=== PATIENT | male | born 1940 | race Caucasian/White ===

== ENCOUNTER 2019-09-13 17:24 | Observation (INO) | payer MEDICARE ==
[~2019-09-13] VITALS: Ht 172.7 cm; Wt 65.6 kg
[2019-09-13] MEDS ORDERED: SODIUM CHLORIDE FLUSH 10ML SYR IVF ONE (18:30)
[2019-09-13 18:39] LABS: BASOPHILS # (AUTO) 0.04 x10^3/uL (0-0.1); BASOPHILS % (AUTO) 1 % (0-1); EOSINOPHILS % (AUTO) 1 % (1-7); LYMPHOCYTES # (AUTO) 1.38 x10^3/uL (1-3.4); LYMPHOCYTES % (AUTO) 20 % (22-44); MD NO; MEAN CORPUSCULAR HEMOGLOBIN 31.4 pg (27.5-34.5); MEAN CORPUSCULAR HGB CONC 33.6 g/dL (33.2-36.2); MEAN CORPUSCULAR VOLUME 93.3 fL (81-97); MEAN PLATELET VOLUME 7.7 fL (7.4-10.4); MONOCYTES # (AUTO) 0.88 x10^3/uL (0.2-0.8); MONOCYTES % (AUTO) 13 % (2-9); NEUTROPHILS # (AUTO) 4.64 x10^3/uL (1.8-6.8); NEUTROPHILS % (AUTO) 66 % (42-75); PLATELET COUNT 279 x10^3/uL (130-400); RED BLOOD COUNT 3.62 x10^6/uL (4.38-5.82); RED CELL DISTRIBUTION WIDTH 14.5 % (9.4-14.8)
[2019-09-13 18:41] LABS: ALANINE AMINOTRANSFERASE 20 U/L (12-78); ALBUMIN 3.1 g/dL (3.4-5.0); ANION GAP 5 mmol/L (5-15); CALCIUM 8.5 mg/dL (8.5-10.1); CHLORIDE 101 mmol/L (98-107); CREATININE 1.25 mg/dL (0.7-1.3)
--- NOTE | 2019-09-13 18:43 | NUR ---
PT GOING TO CT.
[2019-09-13 18:45] LABS: ALKALINE PHOSPHATASE 63 U/L (45-117); BILIRUBIN,TOTAL 0.4 mg/dL (0.2-1.0); TOTAL PROTEIN 6.8 g/dL (6.4-8.2); TROPONIN I < 0.015 ng/mL (0.000-0.045)
--- NOTE | 2019-09-13 19:00 | NUR ---
PT BACK FROM CT. PT AMBULATED TO RESTROOM WITH STEADY GAIT.
--- NOTE | 2019-09-13 19:17 | NUR ---
ALL RESULTS ARE BACK AT THIS TIME. CHART UP FOR RECHECK.
[2019-09-13] MEDS ORDERED: ASCO500T8 PO (19:25)
[2019-09-13] MEDS ORDERED: VITAMIN B12 PO (19:25)
[2019-09-13] MEDS ORDERED: LEVO100T5 PO (19:25)
[2019-09-13] MEDS ORDERED: METO25TA2 PO (19:25)
[2019-09-13] MEDS ORDERED: AMLO10TA8 PO (19:25)
[2019-09-13] MEDS ORDERED: SODI1TAB PO (19:25)
[2019-09-13] MEDS ORDERED: LOSA100T14 PO (19:25)
[2019-09-13] MEDS ORDERED: FERR324T5 PO (19:25)
[2019-09-13] MEDS ORDERED: ATOR40TA78 PO (19:25)
[2019-09-13] MEDS ORDERED: ASPI-496 PO (19:25)
[2019-09-13] MEDS ORDERED: CHOL10003 PO (19:25)
--- NOTE | 2019-09-13 19:27 | NUR ---
PT TO BE ADMITTED. MED REC COMPLETE. PT RESTING COMFORTABLY ON GURNEY. NADN. SON AT BEDSIDE.
[2019-09-13] MEDS ORDERED: SODIUM CHLORIDE FLUSH 10ML SYR IVF PRN (19:30)
--- NOTE | 2019-09-13 19:41 | NUR ---
HOSPITALIST AT BEDSIDE.
--- NOTE | 2019-09-13 19:56 | NUR ---
REPORT GIVENT TO CHANTAL WATTERS.
[2019-09-13] MEDS ORDERED: hydrALAzine 20 MG/ML, 1ML IVPush PRN (20:00)
[2019-09-13] MEDS ORDERED: ONDANSETRON 2MG/ML, 2ML IVPush PRN (20:00)
[2019-09-13] MEDS: ATORVASTATIN 40 MG TABLET PO SCH (20:57)
[2019-09-13 21:38] VITALS: BP 169/74
[2019-09-14 02:02] VITALS: BP 152/61
[2019-09-14 05:23] LABS: BASOPHILS # (AUTO) 0.07 x10^3/uL (0-0.1); BASOPHILS % (AUTO) 1 % (0-1); EOSINOPHILS # (AUTO) 0.08 x10^3/uL (0-0.4); EOSINOPHILS % (AUTO) 2 % (1-7); LYMPHOCYTES # (AUTO) 1.14 x10^3/uL (1-3.4); LYMPHOCYTES % (AUTO) 22 % (22-44); MD NO; MEAN CORPUSCULAR HEMOGLOBIN 31.2 pg (27.5-34.5); MEAN CORPUSCULAR HGB CONC 33.4 g/dL (33.2-36.2); MEAN CORPUSCULAR VOLUME 93.4 fL (81-97); MEAN PLATELET VOLUME 7.9 fL (7.4-10.4); MONOCYTES # (AUTO) 0.77 x10^3/uL (0.2-0.8); MONOCYTES % (AUTO) 15 % (2-9); NEUTROPHILS # (AUTO) 3.21 x10^3/uL (1.8-6.8); NEUTROPHILS % (AUTO) 61 % (42-75); PLATELET COUNT 255 x10^3/uL (130-400); RED BLOOD COUNT 3.23 x10^6/uL (4.38-5.82); RED CELL DISTRIBUTION WIDTH 14.2 % (9.4-14.8)
[2019-09-14 05:30] LABS: ANION GAP 7 mmol/L (5-15); CALCIUM 8.4 mg/dL (8.5-10.1); CHLORIDE 104 mmol/L (98-107)
[2019-09-14 05:42] LABS: CREATININE 1.15 mg/dL (0.7-1.3)
[2019-09-14 06:37] VITALS: BP 147/63
[2019-09-14] MEDS: ASPIRIN 81 MG TABLET EC PO SCH (08:57)
[2019-09-14] MEDS: LOSARTAN 50MG TABLET PO SCH (08:58)
[2019-09-14] MEDS: LEVOTHYROXINE 100 MCG TABLET PO SCH (08:58)
[2019-09-14] MEDS: AMLODIPINE 10 MG TAB PO SCH (08:58)
[2019-09-14] MEDS: METOPROLOL SUCCINATE 25 MG TAB.ER.24H PO SCH (08:58)
[2019-09-14 12:01] VITALS: BP 144/66
[2019-09-14 20:05] VITALS: BP 143/60
[2019-09-14] MEDS: ATORVASTATIN 40 MG TABLET PO SCH (21:22)
[2019-09-15 01:05] VITALS: BP 150/58
[2019-09-15 06:17] VITALS: BP 153/65
[2019-09-15] MEDS: LOSARTAN 50MG TABLET PO SCH (07:53)
[2019-09-15] MEDS: LEVOTHYROXINE 100 MCG TABLET PO SCH (07:53)
[2019-09-15] MEDS: ASPIRIN 81 MG TABLET EC PO SCH (07:53)
[2019-09-15] MEDS: AMLODIPINE 10 MG TAB PO SCH (07:53)
[2019-09-15] MEDS: METOPROLOL SUCCINATE 25 MG TAB.ER.24H PO SCH (07:54)
[2019-09-15 12:08] VITALS: BP 134/68
[2019-09-15] MEDS ORDERED: CLOP75TA52 PO (13:42)
== END 2019-09-15 15:03 | disposition home or self-care (01) ==
LOC: ED 19:57 → EDIP 20:04 → INTOOBSV 20:04 → 4EST 20:31
PROVIDERS: ADMIT Internal Medicine; ATTEND Internal Medicine
DX: G45.9 Transient cerebral ischemic attack, unspecified (principal); E03.9 Hypothyroidism, unspecified; I11.9 Hypertensive heart disease without heart failure; I73.9 Peripheral vascular disease, unspecified; D64.9 Anemia, unspecified; G45.0 Vertebro-basilar artery syndrome; Z79.82 Long term (current) use of aspirin; Z90.49 Acquired absence of other specified parts of digestive tract; Z95.5 Presence of coronary angioplasty implant and graft
CPT/HCPCS: 36415; 70450; 70551; 71045; 80048; 80053; 83735; 84443; 84484; 85025; 93005; 93306; 93880; 97161; 99285; G0378

== ENCOUNTER 2019-11-01 09:41 | Inpatient (IN) | payer MEDICARE ==
[~2019-11-01] VITALS: Ht 172.7 cm; Wt 70.0 kg
[~2019-11-01 09:41] MED LIST: AMLO10TA8 PO; ASCO500T8 PO; ASPI-496 PO; ATOR40TA78 PO; CHOL10003 PO; CLOP75TA52 PO; FERR324T5 PO; LEVO100T5 PO; LOSA100T14 PO; METO25TA2 PO; SODI1TAB PO; VITAMIN B12 PO
[2019-11-01] MEDS ORDERED: PANTOPRAZOLE 80 MG in SODIUM CHLORIDE 0.9% 50 ML IVPB ONE (10:33)
[2019-11-01] MEDS ORDERED: SODIUM CHLORIDE 0.9% 1,000ML IVBOLUS ONE (11:00)
[2019-11-01] MEDS: PANTOPRAZOLE 80 MG in SODIUM CHLORIDE 0.9% 100 ML IV SCH ×3 (11:00→14:00)
[2019-11-01] MEDS ORDERED: ONDANSETRON 2MG/ML, 2ML IVPush ONE (11:00)
[2019-11-01] MEDS ORDERED: SODIUM CHLORIDE FLUSH 10ML SYR IVF ONE (11:00)
[2019-11-01 11:22] LABS: BASOPHILS # (AUTO) 0.01 x10^3/uL (0-0.1); BASOPHILS % (AUTO) 0 % (0-1); EOSINOPHILS % (AUTO) 0 % (1-7); LYMPHOCYTES # (AUTO) 0.67 x10^3/uL (1-3.4); LYMPHOCYTES % (AUTO) 5 % (22-44); MD NO; MEAN CORPUSCULAR HEMOGLOBIN 31.5 pg (27.5-34.5); MEAN CORPUSCULAR HGB CONC 33.9 g/dL (33.2-36.2); MEAN PLATELET VOLUME 8.1 fL (7.4-10.4); MONOCYTES # (AUTO) 0.66 x10^3/uL (0.2-0.8); MONOCYTES % (AUTO) 5 % (2-9); NEUTROPHILS % (AUTO) 90 % (42-75); PLATELET COUNT 298 x10^3/uL (130-400); RED BLOOD COUNT 4.12 x10^6/uL (4.38-5.82); RED CELL DISTRIBUTION WIDTH 14.4 % (9.4-14.8)
[2019-11-01] MEDS ORDERED: ONDANSETRON 2MG/ML, 2ML ONE (11:30)
[2019-11-01 12:17] LABS: INTERNATIONAL NORMALIZED RATIO 0.98 (0.93-1.1); PROTHROMBIN TIME 10.4 Seconds (9.6-11.5)
[2019-11-01 12:19] LABS: ALANINE AMINOTRANSFERASE 18 U/L (12-78); ALBUMIN 3.3 g/dL (3.4-5.0); ANION GAP 11 mmol/L (5-15); CHLORIDE 100 mmol/L (98-107); CREATININE 1.37 mg/dL (0.7-1.3)
[2019-11-01 12:23] LABS: ALKALINE PHOSPHATASE 64 U/L (45-117); BILIRUBIN,TOTAL 0.5 mg/dL (0.2-1.0); TROPONIN I < 0.015 ng/mL (0.000-0.045)
--- NOTE | 2019-11-01 12:46 | NUR ---
pt medicated per order. unable to obtain 2 large bore iv's as ordered due to pt having difficult access. pt resting comfortably in bed at thsi time. call light in reach. iv bolus of ns initiated using pressure bag through 22 g iv in rt hand.
[2019-11-01] MEDS ORDERED: OMNIPAQUE 350 MG/ML, 100ML BOTTLE ONE (13:00)
--- NOTE | 2019-11-01 13:08 | NUR ---
pt to ct now
[2019-11-01] MEDS ORDERED: morphine SULFATE 10 MG/ML, 1ML IVPush PRN (14:00)
[2019-11-01] MEDS ORDERED: ONDANSETRON 2MG/ML, 2ML IVPush PRN (14:00)
[2019-11-01] MEDS ORDERED: hydrALAzine 20 MG/ML, 1ML IVPush PRN (14:00)
[2019-11-01] MEDS ORDERED: LABETALOL 5MG/ML, 20ML IVPush PRN (14:00)
[2019-11-01] MEDS ORDERED: LEVOFLOXACIN/PMX 250MG/50ML 50 ML IV SCH (14:00)
[2019-11-01 15:06] VITALS: BP 146/72
[2019-11-01 15:18] LABS: TROPONIN I 0.019 ng/mL (0.000-0.045)
[2019-11-01] MEDS: NS + 20MEQ KCL 1,000 ML IV SCH (15:20)
[2019-11-01] MEDS: METRONIDAZOLE PMX 500MG/100ML 100 ML IV SCH (16:52)
[2019-11-01 18:50] VITALS: BP 127/75
[2019-11-01 19:56] LABS: TROPONIN I 0.037 ng/mL (0.000-0.045)
[2019-11-02 00:32] VITALS: BP 120/64
[2019-11-02] MEDS: METRONIDAZOLE PMX 500MG/100ML 100 ML IV SCH ×3 (01:35→17:00)
[2019-11-02] MEDS: NS + 20MEQ KCL 1,000 ML IV SCH ×3 (01:35→21:50)
[2019-11-02] MEDS: PANTOPRAZOLE 80 MG in SODIUM CHLORIDE 0.9% 100 ML IV SCH ×4 (02:57→22:22)
[2019-11-02 05:37] LABS: BASOPHILS # (AUTO) 0.03 x10^3/uL (0-0.1); BASOPHILS % (AUTO) 0 % (0-1); EOSINOPHILS % (AUTO) 0 % (1-7); LYMPHOCYTES # (AUTO) 0.77 x10^3/uL (1-3.4); LYMPHOCYTES % (AUTO) 10 % (22-44); MD NO; MEAN CORPUSCULAR HEMOGLOBIN 30.6 pg (27.5-34.5); MEAN CORPUSCULAR HGB CONC 32.3 g/dL (33.2-36.2); MEAN PLATELET VOLUME 7.8 fL (7.4-10.4); MONOCYTES # (AUTO) 1.12 x10^3/uL (0.2-0.8); MONOCYTES % (AUTO) 14 % (2-9); NEUTROPHILS # (AUTO) 6.14 x10^3/uL (1.8-6.8); NEUTROPHILS % (AUTO) 76 % (42-75); PLATELET COUNT 229 x10^3/uL (130-400); RED BLOOD COUNT 3.56 x10^6/uL (4.38-5.82); RED CELL DISTRIBUTION WIDTH 14.3 % (9.4-14.8)
[2019-11-02 05:45] LABS: ALBUMIN 2.7 g/dL (3.4-5.0); ANION GAP 7 mmol/L (5-15); CALCIUM 8.6 mg/dL (8.5-10.1); CHLORIDE 110 mmol/L (98-107)
[2019-11-02 05:50] LABS: ALANINE AMINOTRANSFERASE 13 U/L (12-78); ALKALINE PHOSPHATASE 50 U/L (45-117); BILIRUBIN,TOTAL 0.5 mg/dL (0.2-1.0); TOTAL PROTEIN 5.7 g/dL (6.4-8.2)
[2019-11-02 07:00] VITALS: BP 127/64
[2019-11-02] MEDS: LEVOTHYROXINE 100 MCG INJ IVPush SCH (08:25)
[2019-11-02 14:10] VITALS: BP 117/70
[2019-11-02 19:40] VITALS: BP 123/76
[2019-11-02] MEDS ORDERED: PROMETHAZINE 25 MG/ML, 1ML IM PRN (22:30)
[2019-11-03] MEDS: METRONIDAZOLE PMX 500MG/100ML 100 ML IV SCH ×3 (01:26→18:30)
[2019-11-03 01:58] VITALS: BP 117/71
[2019-11-03 05:54] LABS: BASOPHILS % (AUTO) 0 % (0-1); EOSINOPHILS % (AUTO) 0 % (1-7); LYMPHOCYTES # (AUTO) 0.57 x10^3/uL (1-3.4); LYMPHOCYTES % (AUTO) 5 % (22-44); MD NO; MEAN CORPUSCULAR HEMOGLOBIN 30.7 pg (27.5-34.5); MEAN CORPUSCULAR HGB CONC 32.3 g/dL (33.2-36.2); MONOCYTES # (AUTO) 1.16 x10^3/uL (0.2-0.8); MONOCYTES % (AUTO) 10 % (2-9); NEUTROPHILS # (AUTO) 10.51 x10^3/uL (1.8-6.8); NEUTROPHILS % (AUTO) 86 % (42-75); PLATELET COUNT 262 x10^3/uL (130-400); RED BLOOD COUNT 4.01 x10^6/uL (4.38-5.82); RED CELL DISTRIBUTION WIDTH 14.7 % (9.4-14.8)
[2019-11-03 06:03] LABS: ANION GAP 9 mmol/L (5-15); CALCIUM 9.3 mg/dL (8.5-10.1); CHLORIDE 116 mmol/L (98-107)
[2019-11-03 06:04] LABS: CREATININE 1.19 mg/dL (0.7-1.3)
[2019-11-03] MEDS: NS + 20MEQ KCL 1,000 ML IV SCH ×3 (06:17→22:47)
[2019-11-03 06:54] VITALS: BP 129/68
[2019-11-03] MEDS: PANTOPRAZOLE 80 MG in SODIUM CHLORIDE 0.9% 100 ML IV SCH (08:00)
[2019-11-03] MEDS: LEVOTHYROXINE 100 MCG INJ IVPush SCH (10:22)
[2019-11-03 12:15] VITALS: BP 138/73
[2019-11-03] MEDS ORDERED: hydrALAzine 20 MG/ML, 1ML IV PRN (13:00)
[2019-11-03] MEDS ORDERED: HALOPERIDOL 5 MG/ML IV PRN (13:00)
[2019-11-03] MEDS ORDERED: LABETALOL 5MG/ML, 20ML IV PRN (13:00)
[2019-11-03] MEDS ORDERED: HYDROmorphone 1 MG/ML, 1ML INJ IVPush PRN (13:00)
[2019-11-03] MEDS ORDERED: PROMETHAZINE 25 MG/ML, 1ML IVPush PRN (13:00)
[2019-11-03] MEDS ORDERED: MEPERIDINE/PF 25MG/0.5ML IVPush PRN (13:00)
[2019-11-03] MEDS ORDERED: FENTANYL PF 100 MCG/2ML IV PRN (13:00)
[2019-11-03] MEDS ORDERED: DIPHENHYDRAMINE 50 MG/ML, 1ML IVPush PRN (13:00)
[2019-11-03] MEDS ORDERED: CHLORHEXIDINE 15 ML UDC MM ONE (13:30)
[2019-11-03] MEDS ORDERED: BUPIVACAINE/PF-EPI 0.5% 1:200K INFIL ONE (14:26)
[2019-11-03] MEDS ORDERED: SUGAMMADEX 200 MG/2 ML IVPush ONE (14:37)
[2019-11-03] MEDS ORDERED: ONDANSETRON 2MG/ML, 2ML ONE (14:38)
[2019-11-03] MEDS ORDERED: CEFAZOLIN 1,000 MG ONE (14:38)
[2019-11-03] MEDS ORDERED: PROPOFOL 10 MG/ML, 20ML ONE (14:38)
[2019-11-03] MEDS ORDERED: ROCURONIUM 10MG/ML,5ML ONE (14:38)
[2019-11-03] MEDS ORDERED: DEXAMETHASONE 4 MG/ML, 1ML ONE (14:38)
[2019-11-03] MEDS ORDERED: GLYCOPYRROLATE 0.2MG/1ML, 5ML ONE (14:38)
[2019-11-03] MEDS ORDERED: SUCCINYLCHOLINE 20 MG/ML, 10ML ONE (14:38)
[2019-11-03] MEDS ORDERED: NEOSTIGMINE 1 MG/ML, 10ML ONE (14:38)
[2019-11-03] MEDS ORDERED: LEVOFLOXACIN/PMX 500MG/100ML 100 ML IV SCH (15:00)
[2019-11-03] MEDS ORDERED: PROMETHAZINE 25 MG/ML, 1ML ONE (15:19)
[2019-11-03] MEDS ORDERED: HYDROmorphone 1 MG/ML, 1ML INJ ONE (15:20)
[2019-11-03] MEDS ORDERED: POTASSIUM CHLORIDE 20 MEQ in LACTATED RINGERS 1,000 ML IV SCH (16:30)
[2019-11-03] MEDS ORDERED: LORazepam 2 MG/ML, 1ML IV PRN (16:30)
[2019-11-03] MEDS ORDERED: morphine SULFATE 10 MG/ML, 1ML IV PRN (16:30)
[2019-11-03] MEDS ORDERED: ACETAMINOPHEN 325 MG TABLET PO PRN (16:30)
[2019-11-03] MEDS ORDERED: OXYcodone/APAP 5/325MG TABLET PO PRN (16:30)
[2019-11-03] MEDS ORDERED: ONDANSETRON 2MG/ML, 2ML IV PRN (16:30)
[2019-11-03] MEDS ORDERED: LORazepam 1MG TABLET PO PRN (16:30)
[2019-11-03] MEDS ORDERED: DIPHENHYDRAMINE 50 MG/ML, 1ML IV PRN (16:30)
[2019-11-03] MEDS: LEVOFLOXACIN/PMX 750MG/150ML 150 ML IV SCH (16:57)
[2019-11-03] MEDS: ATORVASTATIN 40 MG TABLET PO SCH (19:08)
[2019-11-03 19:43] VITALS: BP 120/74
[2019-11-03] MEDS: POTASSIUM CHLORIDE 20 MEQ in LACTATED RINGERS 1,000 ML IV SCH (20:44)
[2019-11-03] MEDS ORDERED: BUPIVACAINE/PF-EPI 0.5% 1:200K ONE (20:55)
[2019-11-03] MEDS ORDERED: FENTANYL PF 250 MCG/5ML ONE (21:09)
[2019-11-03] MEDS ORDERED: MIDAZOLAM 1 MG/ML, 2ML ONE (21:09)
[2019-11-03] MEDS ORDERED: CHLORHEXIDINE 15 ML UDC ONE (21:16)
[2019-11-04 00:48] VITALS: BP 171/54
[2019-11-04] MEDS: PANTOPRAZOLE 80 MG in SODIUM CHLORIDE 0.9% 100 ML IV SCH ×3 (01:52→21:01)
[2019-11-04] MEDS: METRONIDAZOLE PMX 500MG/100ML 100 ML IV SCH ×3 (03:08→18:13)
[2019-11-04] MEDS: LEVOTHYROXINE 100 MCG TABLET PO SCH (03:30)
[2019-11-04] MEDS: ASPIRIN 81 MG TABLET EC PO SCH (03:30)
[2019-11-04 04:21] LABS: BASOPHILS # (AUTO) 0.03 x10^3/uL (0-0.1); BASOPHILS % (AUTO) 0 % (0-1); EOSINOPHILS # (AUTO) 0.01 x10^3/uL (0-0.4); EOSINOPHILS % (AUTO) 0 % (1-7); LYMPHOCYTES # (AUTO) 0.51 x10^3/uL (1-3.4); LYMPHOCYTES % (AUTO) 3 % (22-44); MD NO; MEAN CORPUSCULAR HGB CONC 33.1 g/dL (33.2-36.2); MEAN PLATELET VOLUME 7.8 fL (7.4-10.4); MONOCYTES # (AUTO) 0.99 x10^3/uL (0.2-0.8); MONOCYTES % (AUTO) 6 % (2-9); NEUTROPHILS # (AUTO) 13.91 x10^3/uL (1.8-6.8); NEUTROPHILS % (AUTO) 90 % (42-75); PLATELET COUNT 247 x10^3/uL (130-400); RED BLOOD COUNT 3.98 x10^6/uL (4.38-5.82); RED CELL DISTRIBUTION WIDTH 15.1 % (9.4-14.8)
[2019-11-04 04:31] LABS: ALBUMIN 2.8 g/dL (3.4-5.0); ANION GAP 8 mmol/L (5-15); CALCIUM 8.6 mg/dL (8.5-10.1); CHLORIDE 116 mmol/L (98-107); CREATININE 1.26 mg/dL (0.7-1.3)
[2019-11-04] MEDS ORDERED: ENOXAPARIN 40 MG/0.4 ML SQ SCH (06:00)
[2019-11-04 06:37] VITALS: BP 132/67
[2019-11-04] MEDS: LOSARTAN 100 MG TAB PO SCH (07:20)
[2019-11-04] MEDS: AMLODIPINE 10 MG TAB PO SCH (07:20)
[2019-11-04] MEDS: LEVOTHYROXINE 100 MCG INJ IVPush SCH (07:59)
[2019-11-04] MEDS ORDERED: LEVOTHYROXINE 100 MCG INJ IVPush SCH (09:00)
[2019-11-04] MEDS: POTASSIUM CHLORIDE 20 MEQ in LACTATED RINGERS 1,000 ML IV SCH (09:40)
[2019-11-04] MEDS: NS + 20MEQ KCL 1,000 ML IV SCH (12:29)
[2019-11-04 13:52] VITALS: BP 129/78
[2019-11-04] MEDS ORDERED: ESMOLOL 100 MG/10 ML ONE (13:59)
[2019-11-04] MEDS ORDERED: PHENYLEPHRINE 10 MG/ML ONE (13:59)
[2019-11-04] MEDS ORDERED: CEFOTETAN 2 GM ONE (13:59)
[2019-11-04] MEDS ORDERED: EPHEDRINE 50 MG/ML, 1ML ONE (13:59)
[2019-11-04 18:55] VITALS: BP 140/75
[2019-11-04] MEDS: ATORVASTATIN 40 MG TABLET PO SCH (19:40)
[2019-11-05 01:00] VITALS: BP 170/90
[2019-11-05] MEDS: POTASSIUM CHLORIDE 20 MEQ in LACTATED RINGERS 1,000 ML IV SCH ×2 (02:09→14:45)
[2019-11-05] MEDS: METRONIDAZOLE PMX 500MG/100ML 100 ML IV SCH ×3 (02:13→19:40)
[2019-11-05] MEDS: ASPIRIN 81 MG TABLET EC PO SCH (03:01)
[2019-11-05] MEDS: LEVOTHYROXINE 100 MCG TABLET PO SCH ×2 (03:01→08:51)
[2019-11-05 06:09] LABS: BASOPHILS # (AUTO) 0.04 x10^3/uL (0-0.1); BASOPHILS % (AUTO) 0 % (0-1); EOSINOPHILS # (AUTO) 0.06 x10^3/uL (0-0.4); EOSINOPHILS % (AUTO) 1 % (1-7); LYMPHOCYTES # (AUTO) 1.36 x10^3/uL (1-3.4); LYMPHOCYTES % (AUTO) 13 % (22-44); MD NO; MEAN CORPUSCULAR HEMOGLOBIN 31.4 pg (27.5-34.5); MEAN CORPUSCULAR HGB CONC 33.8 g/dL (33.2-36.2); MEAN PLATELET VOLUME 8.3 fL (7.4-10.4); MONOCYTES # (AUTO) 0.92 x10^3/uL (0.2-0.8); MONOCYTES % (AUTO) 9 % (2-9); NEUTROPHILS % (AUTO) 78 % (42-75); PLATELET COUNT 220 x10^3/uL (130-400); RED BLOOD COUNT 3.87 x10^6/uL (4.38-5.82); RED CELL DISTRIBUTION WIDTH 14.9 % (9.4-14.8)
[2019-11-05 06:15] LABS: ANION GAP 6 mmol/L (5-15); CALCIUM 9.1 mg/dL (8.5-10.1); CHLORIDE 116 mmol/L (98-107); CREATININE 1.25 mg/dL (0.7-1.3)
[2019-11-05 07:28] VITALS: BP 195/69
[2019-11-05] MEDS: LEVOTHYROXINE 100 MCG INJ IVPush SCH (08:44)
[2019-11-05 08:49] VITALS: BP 167/71
[2019-11-05] MEDS: AMLODIPINE 10 MG TAB PO SCH (08:51)
[2019-11-05] MEDS: PANTOPRAZOLE 80 MG in SODIUM CHLORIDE 0.9% 100 ML IV SCH (08:51)
[2019-11-05] MEDS: LOSARTAN 100 MG TAB PO SCH (08:51)
[2019-11-05 13:34] VITALS: BP 101/53
[2019-11-05] MEDS: LEVOFLOXACIN/PMX 750MG/150ML 150 ML IV SCH (17:17)
[2019-11-05 18:44] VITALS: BP 107/58
[2019-11-05] MEDS: CLOPIDOGREL 75 MG TABLET PO SCH (20:47)
[2019-11-05] MEDS: ATORVASTATIN 40 MG TABLET PO SCH (20:47)
[2019-11-06 01:32] VITALS: BP 101/54
[2019-11-06] MEDS: METRONIDAZOLE PMX 500MG/100ML 100 ML IV SCH ×3 (03:33→23:07)
[2019-11-06] MEDS: ASPIRIN 81 MG TABLET EC PO SCH (05:24)
[2019-11-06] MEDS: PANTOPRAZOLE 40MG TABLET PO SCH (05:24)
[2019-11-06] MEDS: LEVOTHYROXINE 100 MCG TABLET PO SCH (05:24)
[2019-11-06 05:43] LABS: BASOPHILS # (AUTO) 0.02 x10^3/uL (0-0.1); BASOPHILS % (AUTO) 0 % (0-1); EOSINOPHILS # (AUTO) 0.16 x10^3/uL (0-0.4); EOSINOPHILS % (AUTO) 2 % (1-7); LYMPHOCYTES # (AUTO) 1.19 x10^3/uL (1-3.4); LYMPHOCYTES % (AUTO) 14 % (22-44); MD NO; MEAN CORPUSCULAR HEMOGLOBIN 30.7 pg (27.5-34.5); MEAN CORPUSCULAR HGB CONC 32.8 g/dL (33.2-36.2); MEAN PLATELET VOLUME 8.1 fL (7.4-10.4); MONOCYTES # (AUTO) 0.65 x10^3/uL (0.2-0.8); MONOCYTES % (AUTO) 8 % (2-9); NEUTROPHILS # (AUTO) 6.57 x10^3/uL (1.8-6.8); NEUTROPHILS % (AUTO) 77 % (42-75); PLATELET COUNT 206 x10^3/uL (130-400); RED BLOOD COUNT 3.57 x10^6/uL (4.38-5.82); RED CELL DISTRIBUTION WIDTH 14.7 % (9.4-14.8)
[2019-11-06 05:53] LABS: CHLORIDE 111 mmol/L (98-107)
[2019-11-06 05:56] LABS: ANION GAP 8 mmol/L (5-15); CALCIUM 7.8 mg/dL (8.5-10.1); CREATININE 1.12 mg/dL (0.7-1.3)
[2019-11-06 07:34] VITALS: BP 178/69
[2019-11-06] MEDS: LOSARTAN 100 MG TAB PO SCH (07:51)
[2019-11-06] MEDS: AMLODIPINE 10 MG TAB PO SCH (07:51)
[2019-11-06] MEDS: POTASSIUM CHLORIDE 20 MEQ in LACTATED RINGERS 1,000 ML IV SCH ×2 (07:52→20:38)
[2019-11-06 13:16] VITALS: BP 122/63
[2019-11-06 18:47] VITALS: BP 147/66
[2019-11-06] MEDS: CLOPIDOGREL 75 MG TABLET PO SCH (20:57)
[2019-11-06] MEDS: ATORVASTATIN 40 MG TABLET PO SCH (20:58)
[2019-11-07 01:47] VITALS: BP 162/73
[2019-11-07] MEDS ORDERED: LEVOFLOXACIN/PMX 500MG/100ML 100 ML IV SCH (05:00)
[2019-11-07] MEDS: PANTOPRAZOLE 40MG TABLET PO SCH (05:27)
[2019-11-07] MEDS: LEVOTHYROXINE 100 MCG TABLET PO SCH (05:27)
[2019-11-07] MEDS: ASPIRIN 81 MG TABLET EC PO SCH (05:27)
[2019-11-07 05:30] LABS: BASOPHILS # (AUTO) 0.02 x10^3/uL (0-0.1); BASOPHILS % (AUTO) 0 % (0-1); EOSINOPHILS # (AUTO) 0.16 x10^3/uL (0-0.4); EOSINOPHILS % (AUTO) 2 % (1-7); LYMPHOCYTES # (AUTO) 0.97 x10^3/uL (1-3.4); LYMPHOCYTES % (AUTO) 12 % (22-44); MD NO; MEAN CORPUSCULAR HEMOGLOBIN 30.9 pg (27.5-34.5); MEAN CORPUSCULAR HGB CONC 32.8 g/dL (33.2-36.2); MEAN PLATELET VOLUME 8.2 fL (7.4-10.4); MONOCYTES # (AUTO) 0.68 x10^3/uL (0.2-0.8); MONOCYTES % (AUTO) 8 % (2-9); NEUTROPHILS # (AUTO) 6.64 x10^3/uL (1.8-6.8); NEUTROPHILS % (AUTO) 78 % (42-75); PLATELET COUNT 179 x10^3/uL (130-400); RED BLOOD COUNT 3.58 x10^6/uL (4.38-5.82); RED CELL DISTRIBUTION WIDTH 14.8 % (9.4-14.8)
[2019-11-07 05:36] LABS: ANION GAP 6 mmol/L (5-15); CALCIUM 7.6 mg/dL (8.5-10.1); CHLORIDE 111 mmol/L (98-107); CREATININE 1.05 mg/dL (0.7-1.3)
[2019-11-07] MEDS: METRONIDAZOLE PMX 500MG/100ML 100 ML IV SCH (06:41)
[2019-11-07 08:22] VITALS: BP 184/63
[2019-11-07] MEDS: LOSARTAN 100 MG TAB PO SCH (08:53)
[2019-11-07] MEDS: AMLODIPINE 10 MG TAB PO SCH (08:54)
[2019-11-07] MEDS: POTASSIUM CHLORIDE 20 MEQ in LACTATED RINGERS 1,000 ML IV SCH ×2 (08:59→22:13)
[2019-11-07 12:58] VITALS: BP 148/70
[2019-11-07] MEDS: metroNIDAZOLE 500 MG TABLET PO SCH ×2 (14:38→22:12)
[2019-11-07] MEDS: ATORVASTATIN 40 MG TABLET PO SCH (20:36)
[2019-11-07] MEDS: CLOPIDOGREL 75 MG TABLET PO SCH (20:36)
[2019-11-07 20:41] VITALS: BP 155/78
[2019-11-08 03:37] VITALS: BP 165/65
[2019-11-08] MEDS: PANTOPRAZOLE 40MG TABLET PO SCH (05:06)
[2019-11-08] MEDS: ASPIRIN 81 MG TABLET EC PO SCH (05:06)
[2019-11-08] MEDS: LEVOTHYROXINE 100 MCG TABLET PO SCH (05:07)
[2019-11-08] MEDS: metroNIDAZOLE 500 MG TABLET PO SCH ×2 (05:13→14:39)
[2019-11-08 06:41] LABS: BASOPHILS # (AUTO) 0.04 x10^3/uL (0-0.1); BASOPHILS % (AUTO) 1 % (0-1); EOSINOPHILS % (AUTO) 2 % (1-7); LYMPHOCYTES # (AUTO) 0.99 x10^3/uL (1-3.4); LYMPHOCYTES % (AUTO) 11 % (22-44); MD NO; MEAN CORPUSCULAR HEMOGLOBIN 31.5 pg (27.5-34.5); MEAN CORPUSCULAR HGB CONC 33.7 g/dL (33.2-36.2); MEAN PLATELET VOLUME 8.1 fL (7.4-10.4); MONOCYTES % (AUTO) 10 % (2-9); NEUTROPHILS # (AUTO) 6.91 x10^3/uL (1.8-6.8); NEUTROPHILS % (AUTO) 76 % (42-75); PLATELET COUNT 176 x10^3/uL (130-400); RED BLOOD COUNT 3.56 x10^6/uL (4.38-5.82)
[2019-11-08 06:49] LABS: ANION GAP 5 mmol/L (5-15); CALCIUM 7.7 mg/dL (8.5-10.1); CHLORIDE 111 mmol/L (98-107); CREATININE 1.01 mg/dL (0.7-1.3)
[2019-11-08 07:24] VITALS: BP 180/67
[2019-11-08] MEDS ORDERED: LEVOFLOXACIN 500 MG TABLET PO SCH (09:00)
[2019-11-08] MEDS: AMLODIPINE 10 MG TAB PO SCH (09:22)
[2019-11-08] MEDS: LOSARTAN 100 MG TAB PO SCH (09:22)
[2019-11-08] MEDS: POTASSIUM CHLORIDE 20 MEQ in LACTATED RINGERS 1,000 ML IV SCH (10:29)
[2019-11-08 12:05] VITALS: BP 153/71
[2019-11-08] MEDS ORDERED: POTASSIUM CHLORIDE 20 MEQ PACKET PO ONE (15:00)
[2019-11-08] MEDS ORDERED: PANT40TA6 PO (16:05)
== END 2019-11-08 18:25 | disposition home or self-care (01) | DRG 335 ==
LOC: ED 11:09 → EDIP 13:28 → SUATTDRO 13:42 → 4WST 14:39
PROVIDERS: ADMIT Hospitalist; ATTEND Hospitalist
PROC: 0DN84ZZ Release Small Intestine, Percutaneous Endoscopic Approach (ICD-10-PCS; principal; 2019-11-03 14:00)
DX: K56.50 Intestinal adhesions [bands], unspecified as to partial versus complete obstruction (principal); N17.0 Acute kidney failure with tubular necrosis; E87.1 Hypo-osmolality and hyponatremia; K44.0 Diaphragmatic hernia with obstruction, without gangrene; D64.9 Anemia, unspecified; I10 Essential (primary) hypertension; E03.9 Hypothyroidism, unspecified; E78.5 Hyperlipidemia, unspecified; R33.9 Retention of urine, unspecified; I73.9 Peripheral vascular disease, unspecified; D72.829 Elevated white blood cell count, unspecified; Z85.038 Personal history of other malignant neoplasm of large intestine; Z90.49 Acquired absence of other specified parts of digestive tract; Z86.73 Personal history of transient ischemic attack (TIA), and cerebral infarction without residual deficits; Z80.8 Family history of malignant neoplasm of other organs or systems; Z79.899 Other long term (current) drug therapy; Z79.82 Long term (current) use of aspirin; Z87.891 Personal history of nicotine dependence
CPT/HCPCS: 36415; 74018; 74021; 74177; 74250; 80048; 80053; 82040; 83036; 83605; 83690; 83735; 84132; 84484; 85025; 85610; 87635; 93005; 96374; G0378; J0690; J1100; J1170; J1956; J2250; J2405; J2550; J2704; J2710; J3010; J3480; Q9967; C9113; J0330; J0360; J2270; J2370; J3490; J7030; J7120